=== PATIENT | male | born 1970 | race Caucasian/White ===

== ENCOUNTER → 2017-10-26 07:04 | Outpatient (CLI) | payer OTHER, SELFPAY ==
[2017-10-26 08:09] LABS: Add Manual Diff / Slide Review NO; Eosinophils Percent Auto 2.9 % (2-4); Hematocrit 41.2 % (41-53); Hemoglobin 13.8 g/dL (13.5-17.5); Lymphocytes Percent Auto 35.4 % (25-40); Mean Corpuscular HGB Conc 33.6 % (30-36); Mean Corpuscular Hemoglobin 31.9 PG (26-34); Monocytes Percent Auto 13.9 % (3-14); Neutrophils Absolute Auto 2700 /uL (3000-5900); Neutrophils Percent Auto 46.8 % (50-75); Platelet Count 239 X10^3/uL (150-400); Red Blood Cell Count 4.34 X10^6/uL (4.5-5.9); Red Cell Distribution Width 13.7 % (11.6-14.8); White Blood Cell Count 5.9 X10^3/uL (4.5-11.0)
[2017-10-26 08:31] LABS: Alanine Aminotransferase 29 IU/L (21-72); Albumin Globulin Ratio 1.4 (1.0-2.8); Alkaline Phosphatase 48 U/L (38-126); Aspartate Aminotransferase 27 IU/L (17-59); Bilirubin Total 0.6 mg/dL (0.2-1.3); Blood Urea Nitrogen 18 mg/dL (9-20); Calcium 9.3 mg/dL (8.4-10.2); Carbon Dioxide 30 mmol/L (22-32); Chloride 103 mmol/L (98-107); Cholesterol 152 mg/dL (140-199); Estimated Glomerular Filt Rate > 60.0 mL/min (>60); Globulin 2.8 g/dL (1.7-4.1); Glucose 92 mg/dL (70-100); HDL Cholesterol 49 mg/dL (40-60); HEMOLYSIS < 15 (0-50); LDL Cholesterol Calculated 89 mg/dL (<100); Potassium 4.7 mmol/L (3.4-5.1); Sodium 141 mmol/L (137-145); Total Protein 6.8 g/dL (6.3-8.2); Triglycerides 72 mg/dL (35-150)
== END ==
PROVIDERS: PCP Family Medicine; Visit Provider Family Medicine
DX: Z00.00 Encounter for general adult medical examination without abnormal findings (principal); Z12.5 Encounter for screening for malignant neoplasm of prostate
CPT/HCPCS: 36415; 80053; 80061; 84443; 85025; G0103

== ENCOUNTER → 2018-10-13 07:02 | Outpatient (CLI) | payer OTHER, SELFPAY ==
[2018-10-13 08:19] LABS: Add Manual Diff / Slide Review NO; Basophils Absolute Auto 100 /uL (0-100); Eosinophils Absolute Auto 200 /uL (0-450); Eosinophils Percent Auto 2.9 % (2-4); Hematocrit 39.5 % (41-53); Hemoglobin 13.4 g/dL (13.5-17.5); Lymphocytes Absolute Auto 1900 /uL (1100-4500); Lymphocytes Percent Auto 34.6 % (25-40); Mean Corpuscular Hemoglobin 31.9 PG (26-34); Mean Corpuscular Volume 93.9 fL (80-100); Monocytes Absolute Auto 800 /uL (0-900); Monocytes Percent Auto 14.5 % (3-14); Neutrophils Absolute Auto 2600 /uL (1500-7000); Platelet Count 264 X10^3/uL (150-400); Red Cell Distribution Width 13.4 % (11.6-14.8); White Blood Cell Count 5.5 X10^3/uL (4.5-11.0)
[2018-10-13 08:44] LABS: BUN Creatinine Ratio 18.9 (6-22); Blood Urea Nitrogen 17 mg/dL (9-20); Carbon Dioxide 29 mmol/L (22-32); Chloride 103 mmol/L (98-107); Potassium 4.8 mmol/L (3.4-5.1); Sodium 140 mmol/L (137-145)
[2018-10-13 08:45] LABS: Alanine Aminotransferase 22 IU/L (21-72); Albumin Globulin Ratio 1.3 (1.0-2.8); Alkaline Phosphatase 48 U/L (38-126); Aspartate Aminotransferase 23 IU/L (17-59); Bilirubin Total 0.5 mg/dL (0.2-1.3); Calcium 9.6 mg/dL (8.4-10.2); Cholesterol 150 mg/dL (140-199); Estimated Glomerular Filt Rate > 60.0 mL/min (>60); Globulin 3.1 g/dL (1.7-4.1); Glucose 84 mg/dL (70-100); HDL Cholesterol 42 mg/dL (40-60); HEMOLYSIS < 15 (0-50); LDL Cholesterol Calculated 93 mg/dL (<100); Total Protein 7.1 g/dL (6.3-8.2); Triglycerides 75 mg/dL (35-150)
[2018-10-13 09:15] LABS: Prostate Specific Antigen Scrn 0.656 ng/mL (0.1-4.0)
== END ==
PROVIDERS: PCP Family Medicine; Visit Provider Family Medicine
DX: E78.2 Mixed hyperlipidemia (principal); Z00.00 Encounter for general adult medical examination without abnormal findings; Z12.5 Encounter for screening for malignant neoplasm of prostate; Z13.220 Encounter for screening for lipoid disorders; Z13.6 Encounter for screening for cardiovascular disorders; Z13.1 Encounter for screening for diabetes mellitus
CPT/HCPCS: 36415; 80053; 80061; 85025; G0103

== ENCOUNTER → 2018-11-17 07:43 | Outpatient (CLI) | payer OTHER, SELFPAY ==
--- NOTE | 2018-11-17 07:43 | DI.RAD.S_ITS ---
PROCEDURE: FL UPPER GI W AIR INDICATIONS: worsening reflux COMPARISON: CT IVP 04/09/2011. 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 No suspicious abdominal calcifications. Visualized solid organ contours appear normal. Bony structures appear unremarkable. Esophagus: Esophageal mucosa is normal on air-contrast views. On single-contrast views, there is normal esophageal peristalsis. No strictures, extrinsic mass effects, or diverticulum. No hiatal hernia or elicited gastroesophageal reflux. There is normal transit of a calibrated barium tablet through the esophagus. Stomach: The stomach is normally distensible, with normal rugal fold thickness. No mucosal masses or ulcers. Pylorus and duodenal bulb appear normal in morphology. Duodenal folds are normal in thickness as well. Tiny duodenal diverticulum in the first/second portion. Normal course of the distal duodenum. IMPRESSION: 1. No hiatal hernia. No gastroesophageal reflux elicited. 2. Probable tiny duodenal diverticulum. Dictated by: Toni Monte M.D. on 11/17/2018 at 9:48 Approved by: Toni Monte M.D. on 11/17/2018 at 9:55
== END ==
PROVIDERS: PCP Family Medicine; Visit Provider Family Medicine
DX: K21.9 Gastro-esophageal reflux disease without esophagitis (principal)
CPT/HCPCS: 74247

== ENCOUNTER → 2019-12-05 07:20 | Outpatient (CLI) | payer OTHER, SELFPAY ==
[2019-12-05 08:41] LABS: Add Manual Diff / Slide Review NO; Basophils Absolute Auto 100 /uL (0-100); Basophils Percent Auto 1.2 % (0-2); Eosinophils Absolute Auto 100 /uL (0-450); Eosinophils Percent Auto 2.3 % (2-4); Hematocrit 39.3 % (41-53); Hemoglobin 13.2 g/dL (13.5-17.5); Lymphocytes Absolute Auto 1700 /uL (1100-4500); Lymphocytes Percent Auto 36.5 % (25-40); Mean Corpuscular HGB Conc 33.5 % (30-36); Mean Corpuscular Hemoglobin 31.7 PG (26-34); Mean Corpuscular Volume 94.6 fL (80-100); Monocytes Absolute Auto 700 /uL (0-900); Monocytes Percent Auto 14.8 % (3-14); Neutrophils Absolute Auto 2100 /uL (1500-7000); Neutrophils Percent Auto 45.2 % (50-75); Platelet Count 278 X10^3/uL (150-400); Red Blood Cell Count 4.15 X10^6/uL (4.5-5.9); Red Cell Distribution Width 13.6 % (11.6-14.8); White Blood Cell Count 4.7 X10^3/uL (4.5-11.0)
[2019-12-05 09:03] LABS: Alanine Aminotransferase 53 IU/L (<50); Albumin 4.1 g/dL (3.5-5.0); Albumin Globulin Ratio 1.3 (1.0-2.8); Alkaline Phosphatase 65 U/L (38-126); Aspartate Aminotransferase 33 IU/L (17-59); BUN Creatinine Ratio 13.5 (6-22); Bilirubin Total 0.6 mg/dL (0.2-1.3); Blood Urea Nitrogen 12 mg/dL (9-20); Calcium 9.4 mg/dL (8.4-10.2); Carbon Dioxide 33 mmol/L (22-32); Chloride 102 mmol/L (98-107); Cholesterol 189 mg/dL (140-199); Estimated Glomerular Filt Rate > 60.0 mL/min (>60); Globulin 3.2 g/dL (1.7-4.1); Glucose 97 mg/dL (70-100); HDL Cholesterol 52 mg/dL (40-60); HEMOLYSIS < 15 (0-50); LDL Cholesterol Calculated 119 mg/dL (<100); Potassium 4.8 mmol/L (3.4-5.1); Sodium 139 mmol/L (137-145); Total Protein 7.3 g/dL (6.3-8.2); Triglycerides 91 mg/dL (35-150)
== END ==
PROVIDERS: PCP Family Medicine; Referring Provider Family Medicine; Visit Provider Family Medicine
DX: E78.2 Mixed hyperlipidemia (principal); Z12.5 Encounter for screening for malignant neoplasm of prostate; Z13.6 Encounter for screening for cardiovascular disorders
CPT/HCPCS: 36415; 80053; 80061; 84153; 85025

== ENCOUNTER → 2019-12-27 11:18 | Outpatient (CLI) | payer OTHER, SELFPAY ==
[2019-12-28 14:27] LABS: COVID19 Sendout Not Detected (Not Detect)
== END ==
PROVIDERS: PCP Family Medicine; Visit Provider Physician Assistant
DX: Z03.818 Encounter for observation for suspected exposure to other biological agents ruled out (principal)
CPT/HCPCS: 87635

== ENCOUNTER → 2020-03-06 08:29 | Outpatient (CLI) | payer OTHER, SELFPAY ==
[2020-03-06 11:00] LABS: COVID19 -Nasal RAPID POSITIVE (Negative)
== END ==
PROVIDERS: PCP Family Medicine; Visit Provider Physician Assistant
DX: U07.1 COVID-19 (principal)
CPT/HCPCS: 87635

== ENCOUNTER → 2020-09-06 07:14 | Outpatient (CLI) | payer OTHER, SELFPAY ==
[2020-09-06 08:10] LABS: Add Manual Diff / Slide Review NO; Basophils Absolute Auto 0 /uL (0-100); Basophils Percent Auto 0.6 % (0-2); Eosinophils Absolute Auto 200 /uL (0-450); Eosinophils Percent Auto 3.1 % (2-4); Hemoglobin 13.3 g/dL (13.5-17.5); Lymphocytes Absolute Auto 1900 /uL (1100-4500); Lymphocytes Percent Auto 34.3 % (25-40); Mean Corpuscular HGB Conc 33.4 % (30-36); Mean Corpuscular Hemoglobin 31.3 PG (26-34); Mean Corpuscular Volume 93.9 fL (80-100); Monocytes Absolute Auto 700 /uL (0-900); Monocytes Percent Auto 12.8 % (3-14); Neutrophils Absolute Auto 2700 /uL (1500-7000); Neutrophils Percent Auto 49.2 % (50-75); Platelet Count 255 X10^3/uL (150-400); Red Blood Cell Count 4.26 X10^6/uL (4.5-5.9); Red Cell Distribution Width 13.7 % (11.6-14.8); White Blood Cell Count 5.4 X10^3/uL (4.5-11.0)
[2020-09-06 09:21] LABS: Alanine Aminotransferase 31 IU/L (<50); Albumin 4.1 g/dL (3.5-5.0); Albumin Globulin Ratio 1.2 (1.0-2.8); Alkaline Phosphatase 59 U/L (38-126); Aspartate Aminotransferase 37 IU/L (17-59); BUN Creatinine Ratio 15.5 (6-22); Bilirubin Total 0.7 mg/dL (0.2-1.3); Blood Urea Nitrogen 13 mg/dL (9-20); Calcium 9.7 mg/dL (8.4-10.2); Carbon Dioxide 28 mmol/L (22-32); Chloride 104 mmol/L (98-107); Cholesterol 212 mg/dL (140-199); Estimated Glomerular Filt Rate > 60.0 mL/min (>60); Globulin 3.5 g/dL (1.7-4.1); Glucose 98 mg/dL (70-100); HDL Cholesterol 45 mg/dL (40-60); HEMOLYSIS < 15 (0-50); LDL Cholesterol Calculated 149 mg/dL (<100); Magnesium 2.1 mg/dL (1.6-2.3); Sodium 138 mmol/L (137-145); Total Protein 7.6 g/dL (6.3-8.2); Triglycerides 91 mg/dL (35-150)
[2020-09-06 09:27] LABS: Vitamin D 25 Hydroxy (D3) 34.3 ng/mL (30.0-100.0)
[2020-09-06 09:50] LABS: Prostate Specific Antigen Scrn 0.696 ng/mL (0.1-4.0)
[2020-09-06 09:52] LABS: TSH w/ Reflex to FT4 2.72 uIU/mL (0.47-4.68)
[2020-09-06 10:08] LABS: Vitamin B12 Reflex MMA if <400 392 pg/mL (239-931)
[2020-09-08 03:43] LABS: Methylmalonic Acid,Serum 114 nmol/L (0-378)
== END ==
PROVIDERS: PCP Family Medicine; Referring Provider Family Medicine; Visit Provider Family Medicine
DX: E78.2 Mixed hyperlipidemia (principal); F32.9 Major depressive disorder, single episode, unspecified; Z12.5 Encounter for screening for malignant neoplasm of prostate; B94.8 Sequelae of other specified infectious and parasitic diseases; R53.83 Other fatigue
CPT/HCPCS: 36415; 80053; 80061; 82306; 82607; 83735; 83921; 84443; 85025; G0103

== ENCOUNTER → 2020-11-22 09:40 | Outpatient (CLI) | payer OTHER, SELFPAY ==
[2020-11-22 10:09] LABS: Add Manual Diff / Slide Review NO; Basophils Absolute Auto 0 /uL (0-100); Basophils Percent Auto 0.8 % (0-2); Eosinophils Absolute Auto 100 /uL (0-450); Eosinophils Percent Auto 1.9 % (2-4); Hematocrit 40.3 % (41-53); Hemoglobin 13.5 g/dL (13.5-17.5); Lymphocytes Absolute Auto 1700 /uL (1100-4500); Lymphocytes Percent Auto 34.6 % (25-40); Mean Corpuscular HGB Conc 33.5 % (30-36); Mean Corpuscular Hemoglobin 32.3 PG (26-34); Mean Corpuscular Volume 96.4 fL (80-100); Monocytes Absolute Auto 900 /uL (0-900); Monocytes Percent Auto 17.9 % (3-14); Neutrophils Absolute Auto 2200 /uL (1500-7000); Neutrophils Percent Auto 44.8 % (50-75); Platelet Count 245 X10^3/uL (150-400); Red Blood Cell Count 4.18 X10^6/uL (4.5-5.9); Red Cell Distribution Width 13.9 % (11.6-14.8); White Blood Cell Count 4.9 X10^3/uL (4.5-11.0)
== END ==
PROVIDERS: PCP Family Medicine; Referring Provider Family Medicine; Visit Provider Family Medicine
DX: D64.9 Anemia, unspecified (principal)
CPT/HCPCS: 36415; 85025

== ENCOUNTER 2021-01-03 15:04 | Outpatient (RCR) | payer OTHER, SELFPAY ==
[2021-01-03 15:15] VITALS: PULSE 92; PULSE 97
--- NOTE | 2021-01-03 16:00 | PT.OPPOC ---
Physical, Occupational & Speech Therapy At [facility] Current Diagnoses Postviral fatigue syndrome (01/03/21) Shortness of breath (01/03/21) Personal history of COVID-19 (01/03/21) Visit Care Team Role Provider Type Sukh Gibson MD Family Provider Physician Primary Care Provider Specialty: Family Practice Address: [address] [place] [address], [address] Email: [email or web address] Kenna Stiles MD Attending Provider Non-Staff Referring Provider Specialty: Medical Address: [address] [place] [address], [place], [address] Fax: Email: Plan Of Care PT-OP-T Assessment and Plan Start: 01/03/21 16:36 Freq: Status: Active Protocol: Document 01/03/21 15:15 DCW (Rec: 01/03/21 16:53 DCW [id number]) Physical Therapy Assessment Rehab Potential Rehabilitation Potential Fair Evaluation Complexity Number of Personal Factors/Comorbidities 3 or More Number of Body Systems Impaired 3 Clinical Presentation at Evaluation Unstable Impairments Impairments Activity Tolerance,Functional Activities,Functional Mobility Goals One Impairment Pt home walking program results in very high HR with minimal activity Technical Solutions Consultant Goal (LTG) Pt to exhibit ability to perform walking/elliptical program 15 minutes at a time with heart rate remaining below 130 bpm. LTG Duration 03/05/21 Assessment Summary Assessment Pt presents with limited activity tolerance and difficulty controlling HR during activity 10 months after getting Covid-19. Pt falls in a difficult category for rehab, simply because that overall, he is very functional and is able to live his life relatively normally, just fatigues quickly. Difficult to replicate in this facility pt's complaint of fatigue after pushing a car at his job at [employer]. Pt did note he feels like his heart is racing after most activity. Attempted to get a baseline HR at rest, which measured 92 bpm, and his HR remained 88-97 with all activities in clinic . Was able to use pt's smart watch to determine that his actual resting HR at baseline is ~65, and his HR increased to 92 just walking into the clinic today, and remained at that level the entire time. Pt 's smart watch also noted that his pulse regularly reached 165 just doing a fairly gentle walk on his elliptical 3x/ weekly. Spent a lot of time today discussing that walking should not cause a HR of 165, and recommended he start trying to walk shorter distances more frequently, trying to keep HR under 130 bpm. Pt wants to try to implement this plan working on his own, and return in a few weeks to determine how things are going. Physical Therapy Plan Frequency and Duration Frequency of Treatment Every Other Week Duration of Treatment Two months Plan of Care Start Date 01/03/21 Plan of Care End Date 03/05/21 Therapeutic Interventions Therapeutic Interventions Gait Training,Home Exercise Program,Patient/Caregiver Education,Self-Care/Home Management,Therapeutic Exercises Next Visit Focus/Plan Next Note Type Treatment Note Next Visit Plan HR tracking with activity Plan of Care Dates Plan of Care Start Date 01/03/21 Plan of Care End Date 03/05/21 Electronically Signed by: Saulo Henson, PT 01/06/21 0968 Please Sign and Return: I have reviewed this Plan of Care and certify that the skilled therapy services above are required to meet the patient?s needs. Physician Signature Date Printed Name and Credentials Clinical Instructor Signature Printed Name and Credentials
--- NOTE | 2021-01-03 16:00 | PT.OIE ---
Current Diagnoses Postviral fatigue syndrome (01/03/21) Shortness of breath (01/03/21) Personal history of COVID-19 (01/03/21) Past Medical History (Last Updated 10/29/17 @ 17:35 by Tatum Stubbs) Chicken pox (1974) History of eye surgery (1985) History of right knee surgery (1999) History of urinary tract surgery (2007) Past Surgical History (Last Updated 10/29/17 @ 17:35 by Tatum Stubbs) Anesthesia History of eye surgery (1985) History of right knee surgery (1999) History of urinary tract surgery (2007) Visit Care Team Role Provider Type Sukh Gibson MD Family Provider Physician Primary Care Provider Specialty: Family Practice Address: [address] [place] [address], [facility] Email: [email or web address] Kenna Stiles MD Attending Provider Non-Staff Referring Provider Specialty: Medical Address: [address] [place] [address], [facility] Fax: Email: Physical Therapy Initial Evaluation PT-OP-A Visit Information Start: 01/03/21 16:36 Freq: Status: Active Protocol: Document 01/03/21 15:15 DCW (Rec: 01/03/21 16:55 DCW [id number]) Out-Patient Physical Therapy Visit Information Visit Information Visit Type Initial Evaluation Visit Start Time 15:15 Visit Stop Time 16:15 Total Visit Minutes 60 Visit Number 1 Number of SOCIAL SERVICE ASSISTANT Visits 0 Evaluation Information Evaluation Date 01/03/21 PT-OP-B Current Condition Start: 01/03/21 16:36 Freq: Status: Active Protocol: Document 01/03/21 15:15 DCW (Rec: 01/06/21 09:40 DCW [id number]) Current Condition History of Current Condition Onset Date 10 months Current Complaints Fatigue, tachycardia with activity History of Current Condition Pt is a 50 year old male who is presenting to physical therapy 10 month s/p Covid-19 infection. Pt reports that his post-Covid recovery has been much worse than his actual illness. He has been working with [facility] and is going through their post-Covid program, which recommends physical therapy. 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 Notes his biggest problem is that when he does something very intense , like helping to push a car into the garage, he feels like his heart rate immediately spikes, and he gets extreme fatigue. 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 PT-OP-C Subjective Start: 01/03/21 16:36 Freq: Status: Active Protocol: Document 01/03/21 15:15 DCW (Rec: 01/06/21 09:40 DCW [id number]) OP-PT Subjective Patient Comments Patient Comments I'm not really sure if this is all because of Covid, or more because I just sat around for nine months after getting Covid. OP-PT Pain Assessment Pain Assessment Grid Paper Pain Assessment Grid Completed No PT-OP-E Functional Tests Start: 01/03/21 16:36 Freq: Status: Active Protocol: Document 01/03/21 15:15 DCW (Rec: 01/06/21 09:40 DCW [id number]) Functional Tests 6 Minute Walk Test Distance 1519 Device Used none Comments 4.22 ft/sec PT-OP-H Neuro Start: 01/03/21 16:36 Freq: Status: Active Protocol: Document 01/03/21 15:15 DCW (Rec: 01/06/21 09:40 DCW [id number]) Vital Signs Pulse 1 Pulse at Rest (bpm) 92 Pulse With Activity (bpm) 97 Pulse Assessment Method Pulse Ox/Monitor PT-OP-M Strength Start: 01/03/21 16:36 Freq: Status: Active Protocol: Document 01/03/21 15:15 DCW (Rec: 01/06/21 09:40 DCW [id number]) Hip Strength Hip Manual Muscle Testing Bilateral Flexion (L2) 5 Normal Extension (S1) 5 Normal Abduction 5 Normal Adduction 4- Good- Knee Strength Knee Manual Muscle Testing Bilateral Flexion (S2) 5 Normal Extension (L3) 5 Normal Ankle/Foot Strength Ankle and Foot Manual Muscle Testing Bilateral Dorsiflexion (L4) 5 Normal Plantarflexion (S1) 5 Normal PT-OP-Q Treatments Start: 01/03/21 16:36 Freq: Status: Active Protocol: Document 01/03/21 15:15 DCW (Rec: 01/03/21 16:54 DCW [id number]) Gym Equipment Shuttle Recovery Unilateral Squats Resistance 75# Shuttle Recovery Platform Stable Reps/Time HR = 92 Bilateral Squats Resistance 150# Shuttle Recovery Platform Stable Reps/Time HR = 97 bpm PT-OP-T Assessment and Plan Start: 01/03/21 16:36 Freq: Status: Active Protocol: Document 01/03/21 15:15 DCW (Rec: 01/03/21 16:53 DCW [id number]) Physical Therapy Assessment Rehab Potential Rehabilitation Potential Fair Evaluation Complexity Number of Personal Factors/Comorbidities 3 or More Number of Body Systems Impaired 3 Clinical Presentation at Evaluation Unstable Impairments Impairments Activity Tolerance,Functional Activities,Functional Mobility Goals One Impairment Pt home walking program results in very high HR with minimal activity Assisted Goal (LTG) Pt to exhibit ability to perform walking/elliptical program 15 minutes at a time with heart rate remaining below 130 bpm. LTG Duration 03/05/21 Assessment Summary Assessment Pt presents with limited activity tolerance and difficulty controlling HR during activity 10 months after getting Covid-19. Pt falls in a difficult category for rehab, simply because that overall, he is very functional and is able to live his life relatively normally, just fatigues quickly. Difficult to replicate in this facility pt's complaint of fatigue after pushing a car at his job at [employer]. Pt did note he feels like his heart is racing after most activity. Attempted to get a baseline HR at rest, which measured 92 bpm, and his HR remained 88-97 with all activities in clinic . Was able to use pt's smart watch to determine that his actual resting HR at baseline is ~65, and his HR increased to 92 just walking into the clinic today, and remained at that level the entire time. Pt 's smart watch also noted that his pulse regularly reached 165 just doing a fairly gentle walk on his elliptical 3x/ weekly. Spent a lot of time today discussing that walking should not cause a HR of 165, and recommended he start trying to walk shorter distances more frequently, trying to keep HR under 130 bpm. Pt wants to try to implement this plan working on his own, and return in a few weeks to determine how things are going. Physical Therapy Plan Frequency and Duration Frequency of Treatment Every Other Week Duration of Treatment Two months Plan of Care Start Date 01/03/21 Plan of Care End Date 03/05/21 Therapeutic Interventions Therapeutic Interventions Gait Training,Home Exercise Program,Patient/Caregiver Education,Self-Care/Home Management,Therapeutic Exercises Next Visit Focus/Plan Next Note Type Treatment Note Next Visit Plan HR tracking with activity
--- NOTE | 2021-05-22 09:53 | PT.OPDS ---
Current Diagnoses Postviral fatigue syndrome (01/03/21) Shortness of breath (01/03/21) Personal history of COVID-19 (01/03/21) Visit Care Team Role Provider Type Sukh Gibson MD Family Provider Physician Primary Care Provider Specialty: Family Practice Address: [address] [place] [address], [address] Email: [email or web address] Kenna Stiles MD Attending Provider Non-Staff Referring Provider Specialty: Medical Address: [address] [place] [address], [facility] Email: Visit Number Visit Number 1 Discharge Summary PT-OP-B Current Condition Start: 01/03/21 16:36 Freq: Status: Active Protocol: Document 01/03/21 15:15 DCW (Rec: 01/06/21 09:40 DCW [id number]) Current Condition History of Current Condition Onset Date 10 months Current Complaints Fatigue, tachycardia with activity History of Current Condition Pt is a 50 year old male who is presenting to physical therapy 10 month s/p Covid-19 infection. Pt reports that his post-Covid recovery has been much worse than his actual illness. He has been working with [facility] and is going through their post-Covid program, which recommends physical therapy. 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 Notes his biggest problem is that when he does something very intense , like helping to push a car into the garage, he feels like his heart rate immediately spikes, and he gets extreme fatigue. 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 PT-OP-C Subjective Start: 01/03/21 16:36 Freq: Status: Active Protocol: Document 01/03/21 15:15 DCW (Rec: 01/06/21 09:40 DCW [id number]) OP-PT Subjective Patient Comments Patient Comments I'm not really sure if this is all because of Covid, or more because I just sat around for nine months after getting Covid. OP-PT Pain Assessment Pain Assessment Grid Paper Pain Assessment Grid Completed No PT-OP-E Functional Tests Start: 01/03/21 16:36 Freq: Status: Active Protocol: Document 01/03/21 15:15 DCW (Rec: 01/06/21 09:40 DCW [id number]) Functional Tests 6 Minute Walk Test Distance 1519 Device Used none Comments 4.22 ft/sec PT-OP-H Neuro Start: 01/03/21 16:36 Freq: Status: Active Protocol: Document 01/03/21 15:15 DCW (Rec: 01/06/21 09:40 DCW [id number]) Vital Signs Pulse 1 Pulse at Rest (bpm) 92 Pulse With Activity (bpm) 97 Pulse Assessment Method Pulse Ox/Monitor PT-OP-M Strength Start: 01/03/21 16:36 Freq: Status: Active Protocol: Document 01/03/21 15:15 DCW (Rec: 01/06/21 09:40 DCW [id number]) Hip Strength Hip Manual Muscle Testing Bilateral Flexion (L2) 5 Normal Extension (S1) 5 Normal Abduction 5 Normal Adduction 4- Good- Knee Strength Knee Manual Muscle Testing Bilateral Flexion (S2) 5 Normal Extension (L3) 5 Normal Ankle/Foot Strength Ankle and Foot Manual Muscle Testing Bilateral Dorsiflexion (L4) 5 Normal Plantarflexion (S1) 5 Normal PT-OP-T Assessment and Plan Start: 01/03/21 16:36 Freq: Status: Active Protocol: Document 05/22/21 09:50 DCW (Rec: 05/22/21 09:53 DCW [id number]) Physical Therapy Assessment Assessment Summary Assessment Following eval, pt was instructed to return in 3-4 weeks to check on progress. Pt canceled that visit, did not reschedule, has now not been seen in more than four months. Pt will be discharged from skilled PT at this time, will require a new referral in order to return. Physical Therapy Plan Discharge Physical Therapy Discharge Reasons No Longer Attending PT Next Visit Focus/Plan Next Note Type Discharge Summary
== END 2021-05-26 13:36 ==
LOC: PHYS 15:04
PROVIDERS: Family Provider Family Medicine; PCP Family Medicine; Referring Provider Physical Medicine & Rehabilitation; Visit Provider Physical Medicine & Rehabilitation
DX: Z86.16 Personal history of COVID-19 (principal); R06.02 Shortness of breath; G93.3 Postviral and related fatigue syndromes
CPT/HCPCS: 97110; 97162

== ENCOUNTER → 2021-01-08 11:49 | Outpatient (CLI) | payer OTHER, SELFPAY ==
[2021-01-08 13:03] LABS: COVID19 -Nasal RAPID Negative (Negative)
== END ==
PROVIDERS: Family Provider Family Medicine; PCP Family Medicine; Visit Provider Nurse Practitioner
DX: Z01.812 Encounter for preprocedural laboratory examination (principal); Z20.822 Contact with and (suspected) exposure to COVID-19
CPT/HCPCS: 87635

== ENCOUNTER → 2021-01-09 13:16 | Outpatient (CLI) | payer OTHER, SELFPAY ==
--- NOTE | 2021-01-13 13:23 | DI.NM.S_ITS ---
PROCEDURE PERFORMED: Exercise treadmill stress and rest myocardial perfusion imaging with gating to assess ejection fraction and regional wall motion. DATE OF SERVICE: January 09, 2021. ORDERING PROVIDER: Sukh Gibson MD INDICATIONS: The patient is a 50-year-old male with a history of COVID infection who has persistent exertional dyspnea. CARDIAC STRESS: The patient was able to exercise for 9 minutes 1 seconds on a standard Rupesh protocol suggesting average exercise capacity with an PEYMAN of 0%. He had a normal heart rate and blood pressure response to exercise, achieving a maximum heart rate of 159 BPM (94% of his predicted maximum). He had no chest pain or other anginal symptoms. His resting ECG is normal with normal ST segments. There are no significant ST-segment shifts with exercise. He had rare PVCs with exercise but no concerning complex arrhythmias. At 8 minutes of exercise at a heart rate of 154 BPM, 25.5 millicuries of technetium- 99m Myoview was injected. He was imaged 15 minutes later using a gated SPECT acquisition protocol. Four days earlier while at rest, he had been injected with 26.2 millicuries of technetium-99m Myoview was imaged 30 minutes later, again using a gated SPECT acquisition protocol. FINDINGS: RAW DATA: There appears to be fairly good myocardial tracer uptake. The lung/heart ratio is normal at 0.35 with a normal TID ratio of 0.86. QUANTITATED GATED SPECT: Post-stress ejection fraction is estimated at 75% without any focal wall motion abnormality. Resting ejection fraction is 70% with an end-diastolic volume of 122 mL. MYOCARDIAL PERFUSION IMAGING: Post-stress supine images a show normal perfusion pattern without any perfusion defects, supported by normal perfusion imaging in the prone position. The resting images show an identical perfusion pattern without any areas of improvement. IMPRESSION: 1. Normal myocardial perfusion study. 2. No evidence of myocardial ischemia or previous myocardial infarction. 3. Normal left ventricular systolic function without any focal wall motion abnormality. 4. Average exercise capacity without angina or ECG evidence of ischemia. He had rare PVCs but no concerning arrhythmias. UzairAayushn - RS/fn/cs doc#: [id number]/job#: [id number] dd: 01/13/2021 12:56:00 dt: 01/13/2021 13:13:00 DICTATING MD/COPIES TO: Scott Laureano MD; Sukh Gibson, COPIES MNE: NATE;
== END ==
PROVIDERS: Family Provider Family Medicine; PCP Family Medicine; Referring Provider Family Medicine; Visit Provider Family Medicine
DX: R53.83 Other fatigue (principal); U09.9 Post COVID-19 condition, unspecified; R06.00 Dyspnea, unspecified
CPT/HCPCS: 78452; 93017; A9502

== ENCOUNTER → 2021-01-13 08:11 | Outpatient (CLI) | payer OTHER, SELFPAY ==
--- NOTE | 2021-01-13 09:23 | PM.TREADMILL ---
Cardiac Stress Test Report Referral & Results Date Patient Seen: 01/13/21 Time Patient Seen: 09:00 Requesting provider: Sukh Gibson Indication: Dyspnea Rest ECG: NSR Procedure Note: Today following both written and verbal informed consent the patient was exercised according to a standard Rupesh protocol patient went for a total of 9 minutes achieving a maximum heart rate of 159 maximum systolic blood pressure of 180. This is approximately 10.1 METs. Exercise was terminated at this point because of fatigue. Patient was also given Cardiolite through a previously started Hep-Lock IV by the nuclear medicine technologist approximately 1 minute prior to the cessation of exercise. Normal hemodynamic response to exercise. No signs or symptoms of angina. Presenting symptom of dyspnea not reproduced peak exercise. Rare PVCs at peak exercise. No other EKG changes. Average exercise capacity (FA I 0% on active scale). Impression: Low probability for ischemia. Perfusion imaging pending. Please note: Actual ECG tracings can be found in the PACS system.
== END ==
PROVIDERS: Family Provider Family Medicine; PCP Family Medicine; Referring Provider Family Medicine; Visit Provider Family Medicine
DX: R06.00 Dyspnea, unspecified (principal)
CPT/HCPCS: 78452; 93016; 93017; 93018; A9502

== ENCOUNTER → 2021-08-12 07:02 | Outpatient (CLI) | payer OTHER, SELFPAY ==
[2021-08-12 08:36] LABS: Add Manual Diff / Slide Review NO; Basophils Absolute Auto 0 /uL (0-100); Eosinophils Absolute Auto 200 /uL (0-450); Eosinophils Percent Auto 3.2 % (2-4); Hematocrit 40.9 % (41-53); Hemoglobin 13.7 g/dL (13.5-17.5); Lymphocytes Absolute Auto 1900 /uL (1100-4500); Lymphocytes Percent Auto 40.2 % (25-40); Mean Corpuscular HGB Conc 33.5 % (30-36); Mean Corpuscular Hemoglobin 31.6 PG (26-34); Mean Corpuscular Volume 94.4 fL (80-100); Monocytes Absolute Auto 600 /uL (0-900); Monocytes Percent Auto 11.8 % (3-14); Neutrophils Absolute Auto 2100 /uL (1500-7000); Neutrophils Percent Auto 43.8 % (50-75); Platelet Count 277 X10^3/uL (150-400); Red Blood Cell Count 4.33 X10^6/uL (4.5-5.9); Red Cell Distribution Width 12.9 % (11.6-14.8); White Blood Cell Count 4.8 X10^3/uL (4.5-11.0)
[2021-08-12 09:18] LABS: Alanine Aminotransferase 38 IU/L (<50); Albumin 4.4 g/dL (3.5-5.0); Albumin Globulin Ratio 1.3 (1.0-2.8); Alkaline Phosphatase 57 U/L (38-126); Aspartate Aminotransferase 35 IU/L (17-59); BUN Creatinine Ratio 18.3 (6-22); Bilirubin Total 0.5 mg/dL (0.2-1.3); Blood Urea Nitrogen 20 mg/dL (9-20); Calcium 9.3 mg/dL (8.4-10.2); Carbon Dioxide 31 mmol/L (22-32); Chloride 102 mmol/L (98-107); Cholesterol 188 mg/dL (140-199); Estimated Glomerular Filt Rate > 60 mL/min (>60); Globulin 3.4 g/dL (1.7-4.1); Glucose 95 mg/dL (70-100); HDL Cholesterol 51 mg/dL (40-60); HEMOLYSIS < 15 (0-50); LDL Cholesterol Calculated 120 mg/dL (<100); Potassium 4.3 mmol/L (3.4-5.1); Sodium 140 mmol/L (137-145); Total Protein 7.8 g/dL (6.3-8.2); Triglycerides 83 mg/dL (35-150)
[2021-08-12 09:35] LABS: TSH w/ Reflex to FT4 2.79 uIU/mL (0.47-4.68)
== END ==
PROVIDERS: Family Provider Family Medicine; PCP Family Medicine; Referring Provider Family Medicine; Visit Provider Family Medicine
DX: E78.2 Mixed hyperlipidemia (principal); F32.9 Major depressive disorder, single episode, unspecified
CPT/HCPCS: 36415; 80053; 80061; 82306; 84443; 85025

== ENCOUNTER 2022-10-06 07:33 | Day surgery (SDC) | payer OTHER, SELFPAY ==
[2022-10-06] VITALS (7 sets, daily range): BP systolic 97–156; BP diastolic 68–102; PULSE 61–80; RESP 14–19; TEMP 36–36.2; O2SAT 95–99; BMI 29.2
[2022-10-06] MEDS: LACTATED RINGERS 1,000 ML 42 ML IV (07:57)
--- NOTE | 2022-10-06 07:59 | P.HP_ITS ---
History of Present Illness History of Present Illness Date Patient Seen: 10/06/22 Time Patient Seen: 08:00 Chief complaint: Colonoscopy Narrative: This is his 1st colonoscopy. No family history for colon cancer. No GI symptoms [facility] Medical History Chicken pox (1974) Surgical History Anesthesia History of eye surgery (1985) History of right knee surgery (1999) History of urinary tract surgery (2007) Family History Mother Age: 72 Hypertension Father Prostate cancer Grandmother Emphysema of lung Grandfather No problems noted. Grandfather No problems noted. Grandmother Breast cancer Social History household members: spouse Smoking Status: Never smoker Meds Home Medications and Allergies Home Medications Medication Instructions Recorded Confirmed Type multivitamin 1 tab PO DAILY ##0 10/28/12 10/06/22 History esomeprazole magnesium 20 mg 20 mg PO DAILY #90 caps 12/11/19 10/06/22 Rx capsule,delayed release (Nexium 24HR) tadalafil 10 mg tablet (Cialis) 10 mg PO DAILY #90 tabs 08/26/21 10/06/22 Rx lovastatin 40 mg tablet 40 mg PO QPM #90 tabs 07/31/22 10/06/22 Rx sodium,potassium,mag sulfates 17.5 See Rx Instructions PO .COMPLEX 08/13/22 10/06/22 Rx gram-3.13 gram-1.6 gram oral soln #354 mL (Suprep Bowel Prep Kit) bupropion HCl 300 mg 24 hr tablet, See Rx Instructions .Route 09/08/22 10/06/22 Rx extended release .COMPLEX #90 tabs fluoxetine 40 mg capsule 40 mg PO DAILY #90 caps 09/08/22 10/06/22 Rx Allergies Allergy/AdvReac Type Severity Reaction Status Date / Time hydrocodone [HYDROCODONE] Allergy Mild ITCH Verified 10/06/22 07:45 Review of Systems Review of Systems ROS: Yes All systems reviewed with the patient and are negative except as otherwise documented Exam Vital Signs (past 8 hours): - 10/06/22 07:51 Temperature 96.8 F L Pulse Rate 68 Respiratory Rate 16 Blood Pressure 156/102 H Pulse Oximetry 99 Oxygen Delivery Method Room Air Oxygen Delivery Method Room Air Const General: cooperative, healthy appearing and comfortable Nutritional Appearance: average body habitus HENMT Ears: hearing grossly normal bilaterally Eyes General: appearance normal, both eyes and all related structures Sclera: sclerae normal Neck Neck: trachea midline Resp Effort & Inspection: normal respiratory effort and able to speak in complete sentences Cardio Rate: regular rate Rhythm: regular rhythm GI Palpation: soft Skin General: elasticity normal and turgor normal Neuro General: patient alert, patient awake and patient oriented x3 Cognition: normal cognition Psych Appearance: grossly normal Judgment: judgment good Assessment & Plan Assessment & Plan narrative: Colonoscopy for colon cancer screening under MAC Time Spent With Patient Time with patient: less than 30 minutes
--- NOTE | 2022-10-06 08:24 | PM.OP.COLON ---
Operative Date/Time/Diagnoses Date of procedure: 10/06/22 Time of procedure: 08:24 Pre-op diagnosis: Colon cancer screening Post-op diagnosis: same Procedure & Clinicians Study performed: Colonoscopy under MAC Same procedure as scheduled: Yes Indications: Colon cancer screening Surgeon: Krissy Whalen Procedure Notes Procedure in detail: Preop diagnosis: Colon cancer screening Postop diagnosis: Same Operative procedure: Colonoscopy under MAC Surgeon: Constance Whalen MD Findings: No significant diverticulosis. No polyps Procedure: Patient placed in lateral position. Rectal exam performed showing normal tone no masses. Colonoscope inserted into the rectum and advanced to ileocecal valve with minimal difficulty. Insufflation and extraction of the scope and the above findings Impression: Normal colonoscopy. No polyps, no significant diverticulosis. Plan: Repeat colonoscopy in 10 years unless otherwise indicated by change in clinical condition Specimen(s): none sent Complications: none Post-procedure Recommendations: Colonoscopy in 10 years Follow up: as needed Disposition: PACU
== END 2022-10-06 09:07 | disposition home or self-care (01) ==
PROVIDERS: Surgery; Family Provider Family Medicine; PCP Family Medicine; Referring Provider Surgery; Visit Provider Surgery
PROC: 0DJD8ZZ Inspection of Lower Intestinal Tract, Via Natural or Artificial Opening Endoscopic (ICD-10-PCS; CPT 45378; principal; 2022-10-06 08:30)
DX: Z12.11 Encounter for screening for malignant neoplasm of colon (principal)
CPT/HCPCS: 45378; J2704

== ENCOUNTER → 2022-11-20 08:59 | Outpatient (CLI) | payer OTHER, SELFPAY ==
[2022-11-20 10:23] LABS: Add Manual Diff / Slide Review NO; Basophils Absolute Auto 0 /uL (0-100); Basophils Percent Auto 0.8 % (0-2); Eosinophils Absolute Auto 100 /uL (0-450); Eosinophils Percent Auto 2.4 % (2-4); Hematocrit 39.2 % (41-53); Hemoglobin 13.3 g/dL (13.5-17.5); Lymphocytes Absolute Auto 1900 /uL (1100-4500); Lymphocytes Percent Auto 33.1 % (25-40); Mean Corpuscular Hemoglobin 32.2 PG (26-34); Mean Corpuscular Volume 94.7 fL (80-100); Monocytes Absolute Auto 700 /uL (0-900); Monocytes Percent Auto 11.8 % (3-14); Neutrophils Absolute Auto 2900 /uL (1500-7000); Neutrophils Percent Auto 51.9 % (50-75); Platelet Count 252 X10^3/uL (150-400); Red Blood Cell Count 4.14 X10^6/uL (4.5-5.9); Red Cell Distribution Width 13.6 % (11.6-14.8); White Blood Cell Count 5.6 X10^3/uL (4.5-11.0)
[2022-11-20 10:57] LABS: Alanine Aminotransferase 33 IU/L (<50); Albumin 4.1 g/dL (3.5-5.0); Albumin Globulin Ratio 1.3 (1.0-2.8); Alkaline Phosphatase 66 U/L (38-126); Aspartate Aminotransferase 30 IU/L (17-59); BUN Creatinine Ratio 15.5 (6-22); Bilirubin Total 0.5 mg/dL (0.2-1.3); Blood Urea Nitrogen 15 mg/dL (9-20); Calcium 9.3 mg/dL (8.4-10.2); Carbon Dioxide 29 mmol/L (22-32); Chloride 103 mmol/L (98-107); Cholesterol 191 mg/dL (140-199); Estimated Glomerular Filt Rate > 60 mL/min (>60); Globulin 3.1 g/dL (1.7-4.1); Glucose 95 mg/dL (70-100); HDL Cholesterol 50 mg/dL (40-60); HEMOLYSIS < 15 (0-50); LDL Cholesterol Calculated 126 mg/dL (<100); Potassium 4.4 mmol/L (3.4-5.1); Sodium 138 mmol/L (137-145); Total Protein 7.2 g/dL (6.3-8.2); Triglycerides 74 mg/dL (35-150)
[2022-11-20 11:22] LABS: TSH w/ Reflex to FT4 2.71 uIU/mL (0.47-4.68)
[2022-11-20 11:23] LABS: Prostate Specific Antigen Scrn 1.53 ng/mL (0.1-4.0)
== END ==
PROVIDERS: Family Provider Family Medicine; PCP Family Medicine; Referring Provider Family Medicine; Visit Provider Family Medicine
DX: Z00.00 Encounter for general adult medical examination without abnormal findings (principal); E78.2 Mixed hyperlipidemia; F32.9 Major depressive disorder, single episode, unspecified; Z12.5 Encounter for screening for malignant neoplasm of prostate
CPT/HCPCS: 36415; 80053; 80061; 84443; 85025; G0103

== ENCOUNTER → 2024-02-10 07:00 | Outpatient (CLI) | payer OTHER, SELFPAY ==
[2024-02-10 07:53] LABS: Add Manual Diff / Slide Review NO; Basophils Absolute Auto 0 /uL (0-100); Basophils Percent Auto 0.8 % (0-2); Eosinophils Absolute Auto 100 /uL (0-450); Eosinophils Percent Auto 2.3 % (2-4); Hematocrit 41.4 % (41-53); Hemoglobin 13.9 g/dL (13.5-17.5); Lymphocytes Absolute Auto 1700 /uL (1100-4500); Mean Corpuscular HGB Conc 33.6 % (30-36); Mean Corpuscular Hemoglobin 32.1 PG (26-34); Mean Corpuscular Volume 95.5 fL (80-100); Monocytes Absolute Auto 700 /uL (0-900); Monocytes Percent Auto 14.7 % (3-14); Neutrophils Absolute Auto 2300 /uL (1500-7000); Neutrophils Percent Auto 47.2 % (50-75); Platelet Count 268 X10^3/uL (150-400); Red Blood Cell Count 4.34 X10^6/uL (4.5-5.9); Red Cell Distribution Width 13.2 % (11.6-14.8); White Blood Cell Count 4.8 X10^3/uL (4.5-11.0)
[2024-02-10 08:10] LABS: Alanine Aminotransferase 24 IU/L (<50); Albumin 4.4 g/dL (3.5-5.0); Albumin Globulin Ratio 1.5 (1.0-2.8); Alkaline Phosphatase 72 U/L (38-126); Aspartate Aminotransferase 26 IU/L (17-59); BUN Creatinine Ratio 16.7 (6-22); Bilirubin Total 0.7 mg/dL (0.2-1.3); Blood Urea Nitrogen 18 mg/dL (9-20); Calcium 9.8 mg/dL (8.4-10.2); Carbon Dioxide 30 mmol/L (22-32); Chloride 103 mmol/L (98-107); Cholesterol 177 mg/dL (140-199); Estimated Glomerular Filt Rate > 60 mL/min (>60); Glucose 95 mg/dL (70-100); HDL Cholesterol 48 mg/dL (40-60); HEMOLYSIS < 15 (0-50); LDL Cholesterol Calculated 117 mg/dL (<100); Potassium 4.8 mmol/L (3.4-5.1); Sodium 139 mmol/L (137-145); Total Protein 7.4 g/dL (6.3-8.2); Triglycerides 60 mg/dL (35-150)
[2024-02-10 08:38] LABS: TSH w/ Reflex to FT4 2.47 uIU/mL (0.47-4.68)
[2024-02-10 08:41] LABS: Prostate Specific Antigen Scrn 1.17 ng/mL (0.1-4.0)
[2024-02-11 04:37] LABS: Apolipoprotein B 81 mg/dL (<90)
== END ==
PROVIDERS: Family Provider Family Medicine; PCP Family Medicine; Referring Provider Family Medicine; Visit Provider Family Medicine
DX: Z00.00 Encounter for general adult medical examination without abnormal findings (principal); E78.2 Mixed hyperlipidemia; F32.9 Major depressive disorder, single episode, unspecified; Z12.5 Encounter for screening for malignant neoplasm of prostate; Z80.8 Family history of malignant neoplasm of other organs or systems
CPT/HCPCS: 36415; 80053; 80061; 82172; 84443; 85025; G0103

== ENCOUNTER → 2025-02-01 07:00 | Outpatient (CLI) | payer OTHER, SELFPAY ==
[2025-02-01 08:04] LABS: Add Manual Diff / Slide Review NO; Hematocrit 38.9 % (41-53); Hemoglobin 13.4 g/dL (13.5-17.5); Lymphocytes Absolute Auto 1600 /uL (1100-4500); Mean Corpuscular HGB Conc 34.3 % (30-36); Mean Corpuscular Hemoglobin 32.3 PG (26-34); Mean Corpuscular Volume 94.1 fL (80-100); Platelet Count 235 X10^3/uL (150-400)
[2025-02-01 08:42] LABS: Alanine Aminotransferase 19 IU/L (<50); Albumin 4.2 g/dL (3.5-5.0); Albumin Globulin Ratio 1.4 (1.0-2.8); Alkaline Phosphatase 65 U/L (38-126); Blood Urea Nitrogen 18 mg/dL (9-20); Calcium 9.3 mg/dL (8.4-10.2); Carbon Dioxide 27 mmol/L (22-32); Chloride 105 mmol/L (98-107); Cholesterol 167 mg/dL (140-199); Estimated Glomerular Filt Rate > 60 mL/min (>60); Globulin 3.1 g/dL (1.7-4.1); Glucose 88 mg/dL (70-99); HDL Cholesterol 54 mg/dL (40-60); HEMOLYSIS < 15 (0-50); Potassium 4.4 mmol/L (3.4-5.1); Sodium 140 mmol/L (137-145); Total Protein 7.3 g/dL (6.3-8.2); Triglycerides 53 mg/dL (35-150)
[2025-02-01 09:02] LABS: TSH w/ Reflex to FT4 2.53 uIU/mL (0.47-4.68)
[2025-02-01 11:06] LABS: Vitamin D 25 Hydroxy (D3) 30.3 ng/mL (30.0-100.0)
== END ==
PROVIDERS: PCP Family Medicine; Referring Provider Family Medicine; Visit Provider Family Medicine
DX: Z00.00 Encounter for general adult medical examination without abnormal findings (principal); Z12.5 Encounter for screening for malignant neoplasm of prostate; E78.2 Mixed hyperlipidemia; F32.9 Major depressive disorder, single episode, unspecified; Z80.8 Family history of malignant neoplasm of other organs or systems
CPT/HCPCS: 36415; 80053; 80061; 82172; 82306; 84443; 85025; G0103